=== PATIENT | female | born 1985 | race Caucasian/White ===

== ENCOUNTER 2021-10-13 13:18 | Inpatient (IN) | payer OTHER ==
[~2021-10-13] VITALS: Ht 162.6 cm; Wt 63.5 kg
[2021-10-13 13:18] VITALS: BP 137/80
[2021-10-13 13:54] LABS: HEMATOCRIT 40.2 % (37.0-47.0); HEMOGLOBIN 13.2 gm/dL (12.0-15.0); MCH 27.9 pg (26.0-34.0); MCHC 32.7 g/dL (28.0-37.0); MCV 85.2 fL (80.0-100.0); RBC 4.72 mil/uL (4.20-5.00); RDW 14.2 % (10.5-14.5); WBC 12.6 thou/uL (4.0-11.0)
[2021-10-13 14:04] LABS: CALCIUM 9.3 mg/dL (8.5-10.1); CREATININE 0.6 mg/dL (0.6-1.0); POTASSIUM 3.6 mmol/L (3.5-5.1)
[2021-10-13 14:11] LABS: TOTAL BILIRUBIN 0.6 mg/dL (0.2-1.0); TOTAL PROTEIN 8.3 g/dL (6.4-8.2)
[2021-10-13 16:25] LABS: URINE BILIRUBIN NEGATIVE (Negative); URINE BLOOD NEGATIVE (Negative); URINE CLARITY CLEAR; URINE COLOR YELLOW; URINE GLUCOSE-RANDOM* NEGATIVE (Negative); URINE KETONES 3+ (Negative); URINE LEUKOCYTES-REFLEX NEGATIVE (Negative); URINE NITRITE-REFLEX NEGATIVE (Negative); URINE PROTEIN (DIPSTICK) NEGATIVE (Negative); URINE SPECIFIC GRAVITY >= 1.030 (1.005-1.035); URINE UROBILINOGEN 0.2 E.U./dl (0.2-1.0)
[2021-10-13 16:30] LABS: URINE REDUCING SUBSTANCE NEGATIVE
--- NOTE | 2021-10-13 20:30 | NUR ---
HAND OFF TOOL SENT TO [address] [place] [address]
--- NOTE | 2021-10-13 21:20 | NUR ---
2 CALLS MADE TO [address] [place] [address] NO ANSWER CALL PLACED NOW, NURSE NOT AVAILABLE
--- NOTE | 2021-10-13 21:56 | NUR ---
NURSE NOT AVAILABLE FOR REPORT, MEDICAL DOCTOR MD/MEDICAL DIRECTOR CONTACTED SHE IS AWARE PT WILL BE SENT TO THE FLOOR AND NURSE TO NOTIFY FOR REPORT
--- NOTE | 2021-10-13 22:04 | NUR ---
ATTEMPT TO CALL REPORT, PHONE DISCONNECTED
[2021-10-13 22:05] VITALS: BP 99/69
[2021-10-13 22:25] VITALS: BP 120/76
[2021-10-13 22:27] VITALS: BP 163/62
[2021-10-13 22:28] VITALS: BP 119/60
[2021-10-13 22:29] VITALS: BP 132/80
[2021-10-14 04:48] VITALS: BP 91/52
--- NOTE | 2021-10-14 05:06 | NUR ---
ASSUMED CARE AT 2207, PT REPORTS LEFT ABD PAIN RADIATING TO THE BACK, ASSISTED TO THE TOILET X 1 ASSIST SLEEPING COMFORTABLY AT THIS TIME, NAUSEA MEDICATION ADMINISTERED PER REQUEST, COMPLIANT TO TX NO ADVERSE REACTION NOTED. PT HAS HYSTERECTOMY APPOINTMENT ON 11/13/21 WITH PRIMARY LICENSING SERVICES CLERK, VITAL SIGNS WITHIN BASELINE WILL CONTINUE TO MONITOR.
[2021-10-14 07:21] VITALS: BP 97/68
--- NOTE | 2021-10-14 14:29 | NUR ---
PT ADMITTED RELATED TO INTRACTABLE ABDOMINAL PAIN, NAUSEA, HYDROSALPINX. CM REVIEWED CHART AND SPOKE WITH CARE TEAM. CM MET WITH PT AND SPOUSE AT BEDSIDE THIS DAY. PT APPEARED TO BE A&O X4. CMR ROLE INTRODUCED. PT INDICATED SHE RESIDES IN A HOUSE WITH HER SPOUSE WITH A FEW STEPS TO ENTER AND SOME STEPS INSIDE. PT INDICATED SHE HAD BEEN INDEPENDENT WITTH GAIT AND ADLS RESTORER LACE AND TEXTILES. PT INDIATED SHE PLANS TO RETURN HOME ONCE MEDICALLY STABLE. CM FOLLOWING REGARDING DC PLANNING. PT SCHEDULED FOR OP HISTO 11/13/21. PT IS ON IV DOXY AND UNASYN. BALL ENDER CONSULTED. CM FOLLOWING REGARDING DC PLANNING.
[2021-10-14 17:00] VITALS: BP 104/55
[2021-10-14 19:11] VITALS: BP 94/56
[2021-10-15 01:06] VITALS: BP 95/62
--- NOTE | 2021-10-15 04:52 | NUR ---
Assumed pt care at 1900. A/OX4,VSS. Denies pain,N/V on assessment. Up ad obinna w/o any problems voicede. SR on telemetry.Resting w/o any distress,will continue to monitor pt.
[2021-10-15 06:33] VITALS: BP 98/50
[2021-10-15 07:00] VITALS: BP 91/53
[2021-10-15] MEDS ORDERED: IBU600 MG PO (11:52)
[2021-10-15] MEDS ORDERED: ZOFRAN 4 MG ORAL4 MG PO (11:52)
[2021-10-15] MEDS ORDERED: DOXYCYCLINE HY100 M3 PO (11:52)
[2021-10-15] MEDS ORDERED: CEPHALEXIN500 MG PO (11:52)
[2021-10-15 11:57] VITALS: BP 91/53
--- NOTE | 2021-10-15 12:33 | NUR ---
Assumed pt care at 7am.Pt in bed resting and very anxious about going home today. Assessment completed.vss.Pt tolerated maed and diet. Dr Jackson here,dc order noted.Dc summary compile and reviewed with pt and spouse.Rx given. Piv and saline lock dc'd.Pt will be dc'd home after lunch.Will continue to monitor.
--- NOTE | 2021-10-15 14:02 | NUR ---
CARE TEAM INDICATED THAT PT IS MEDICALLY STABLE TO DC HOME THIS DAY. NO OTHER CM INTERVENTION INDICATED. CASE CLOSED. PT'S SPOUSE TO TRANSPORT HOME THIS DAY. CASE CLOSED.
== END 2021-10-15 13:10 | disposition home or self-care (01) | DRG 872 ==
LOC: ER 13:18 → 4W 19:35 → EROBS 19:35 → 4W 22:17
PROVIDERS: Nurse Practitioner Family; ADMIT Hospitalist; ATTEND Hospitalist
DX: A41.89 Other specified sepsis (principal); N70.91 Salpingitis, unspecified; N80.9 Endometriosis, unspecified; N70.11 Chronic salpingitis; N73.9 Female pelvic inflammatory disease, unspecified; Z20.822 Contact with and (suspected) exposure to COVID-19; E86.0 Dehydration; N83.202 Unspecified ovarian cyst, left side; N83.201 Unspecified ovarian cyst, right side; Z98.891 History of uterine scar from previous surgery
CPT/HCPCS: 10045